=== PATIENT | male | born 1955 | race Caucasian/White ===

== ENCOUNTER 2019-06-22 11:32 | Emergency (ER) | payer MEDICARE, MEDICAID ==
[~2019-06-22] VITALS: Ht 182.9 cm; Wt 80.0 kg
[~2019-06-22 11:32] MED LIST: OMEP-84 PO; TRAZ-91 PO; TRAZ150T78 PO
[2019-06-22 12:28] LABS: BASOPHILS # (AUTO) 0.1 X10'3 (0-0.2); EOSINOPHILS # (AUTO) 0.2 X10'3 (0-0.9); EOSINOPHILS % (AUTO) 2.7 % (0-6); HEMATOCRIT 48.4 % (42.0-52.0); HEMOGLOBIN 16.9 g/dl (14.0-17.9); LYMPHOCYTES # (AUTO) 1.5 X10'3 (1.1-4.8); LYMPHOCYTES % (AUTO) 22.8 % (21-51); MEAN CORPUSCULAR HEMOGLOBIN 33.2 PG (27.0-31.0); MEAN CORPUSCULAR VOLUME 94.8 FL (78-98); MEAN PLATELET VOLUME 7.5 FL (7.4-10.4); MONOCYTES # (AUTO) 0.6 X10'3 (0-0.9); MONOCYTES % (AUTO) 9.2 % (2-12); NEUTROPHILS # (AUTO) 4.3 X10'3 (1.8-7.7); NEUTROPHILS % (AUTO) 64.3 % (42-75); PLATELET COUNT 264 X10'3 (140-440); WHITE BLOOD COUNT 6.7 X10'3 (4.5-11.0)
[2019-06-22 12:37] LABS: ALANINE AMINOTRANSFERASE 12 U/L (12-78); ALBUMIN/GLOBULIN RATIO 1.1 (1.1-1.5); ALKALINE PHOSPHATASE 98 IU/L (46-116); ANION GAP 10 (8-16); ASPARTATE AMINO TRANSFERASE 16 U/L (10-37); BILIRUBIN,TOTAL 0.5 MG/DL (0.1-1.0); BLOOD UREA NITROGEN 16 MG/DL (7-18); BUN/CREATININE RATIO 15.2 (5.4-32.0); CALCIUM 9.3 MG/DL (8.5-10.1); CHLORIDE 105 MMOL/L (99-107); CREATININE 1.05 MG/DL (0.60-1.10); GLUCOSE 93 MG/DL (70-104); SODIUM 141 MMOL/L (135-145); TOTAL CARBON DIOXIDE 25.9 MMOL/L (24-32); TOTAL PROTEIN 7.7 G/DL (6.4-8.2); eGFR 72 ML/MIN
[2019-06-22 15:17] LABS: CLARITY,URINE CLEAR (Clear); COLOR,URINE YELLOW (Yellow); GLUCOSE, URINE NEGATIVE (Neg); KETONES,URINE 40 mg/dl (Neg); LEUKOCYTE ESTERASE ,URINE NEGATIVE (Neg); NITRITES, URINE NEGATIVE (Neg); OCCULT BLOOD,URINE TRACE-INTACT (Neg); PH,URINE 5.5 (4.8-8.0); PROTEIN,URINE NEGATIVE (Neg); UROBILINOGEN,URINE 0.2 E.U/dL (0.2-1.0)
[2019-06-22 15:19] LABS: UA COLLECTION TYPE CLN CATCH MIDSTREAM
[2019-06-22 15:27] LABS: BACTERIA,URINE FEW /HPF (Neg); MUCUS STRANDS FEW /LPF (Neg); SQUAMOUS EPITHELIAL CELL,UR FEW /LPF (FEW)
[2019-06-22] MEDS ORDERED: iohexol 300mg/ml 100ml inj. ONE (18:26)
[2019-06-22] MEDS ORDERED: HYDROcodone/acetaminophen 5mg/325mg tablet PO ONE (18:35)
[2019-06-22] MEDS ORDERED: HYDR-4383 PO (20:08)
[2019-06-22] MEDS ORDERED: DOCU100C41 PO (20:08)
[2019-06-22 20:16] VITALS: BP 127/87
== END 2019-06-22 20:19 | disposition home or self-care (01) ==
LOC: ER 11:33
DX: N42.89 Other specified disorders of prostate (principal); M54.5 Low back pain; R14.0 Abdominal distension (gaseous); R10.30 Lower abdominal pain, unspecified; F17.200 Nicotine dependence, unspecified, uncomplicated; Z79.899 Other long term (current) drug therapy; Z98.890 Other specified postprocedural states; Z86.19 Personal history of other infectious and parasitic diseases
CPT/HCPCS: 36415; 74176; 74177; 80053; 81001; 85025; 85610; 87088; 99284; Q9967

== ENCOUNTER 2019-09-07 08:10 | Emergency (ER) | payer MEDICARE, MEDICAID ==
[~2019-09-07] VITALS: Ht 182.9 cm; Wt 72.0 kg
[~2019-09-07 08:10] MED LIST changes: +DOCU100C41 PO; +HYDR-4383 PO
[2019-09-07] MEDS ORDERED: HYDROcodone/acetaminophen 10/325mg tab PO ONE (08:55)
[2019-09-07] MEDS ORDERED: ondansetron 4mg rapidly disintigrating tab PO ONE (08:55)
[2019-09-07] MEDS ORDERED: HYDR-4383 PO (09:47)
[2019-09-07] MEDS ORDERED: ONDA4TAB6 PO (09:47)
[2019-09-07 09:56] VITALS: BP 146/94
== END 2019-09-07 09:58 | disposition home or self-care (01) ==
LOC: ER 08:11
DX: M54.5 Low back pain (principal); Z90.49 Acquired absence of other specified parts of digestive tract; Z98.890 Other specified postprocedural states; Z79.899 Other long term (current) drug therapy
CPT/HCPCS: 99283

== ENCOUNTER 2020-05-09 08:37 | Emergency (ER) | payer MEDICARE, MEDICAID ==
[~2020-05-09] VITALS: Ht 182.9 cm; Wt 70.5 kg
[~2020-05-09 08:37] MED LIST changes: +ONDA4TAB6 PO
[2020-05-09] MEDS ORDERED: normal saline 1000ML IV soln IVB ONE ×2 (09:20→10:40)
[2020-05-09] MEDS ORDERED: morphine 10mg/ml inj. IV ONE (09:20)
[2020-05-09] MEDS ORDERED: ondansetron/PF 4mg/2ml inj IV ONE (09:20)
[2020-05-09] MEDS ORDERED: LIDOcaine 2% 10ml TOPICAL JELLY (Urojet) MM ONE (09:20)
--- NOTE | 2020-05-09 09:58 | NUR ---
FARHANA Bowman notified of two failed allison attempts.
[2020-05-09 10:39] LABS: BASOPHILS # (AUTO) 0.1 X10'3 (0-0.2); BASOPHILS % (AUTO) 1.2 % (0-1); EOSINOPHILS # (AUTO) 0.1 X10'3 (0-0.9); EOSINOPHILS % (AUTO) 1.5 % (0-6); HEMOGLOBIN 15.2 g/dl (14.0-17.9); LYMPHOCYTES # (AUTO) 0.6 X10'3 (1.1-4.8); LYMPHOCYTES % (AUTO) 11.5 % (21-51); MEAN CORPUSCULAR HEMOGLOBIN 33.4 PG (27.0-31.0); MEAN CORPUSCULAR HGB CONC 34.5 g/dL (33.0-36.5); MEAN CORPUSCULAR VOLUME 96.8 FL (78-98); MONOCYTES # (AUTO) 0.6 X10'3 (0-0.9); NEUTROPHILS # (AUTO) 4.2 X10'3 (1.8-7.7); NEUTROPHILS % (AUTO) 74.8 % (42-75); PLATELET COUNT 229 X10'3 (140-440); RED BLOOD COUNT 4.55 X10'6 (4.70-6.10); RED CELL DISTRIBUTION WIDTH 15.1 % (11.5-14.5); WHITE BLOOD COUNT 5.6 X10'3 (4.5-11.0)
[2020-05-09 11:09] LABS: ALANINE AMINOTRANSFERASE 12 U/L (12-78); ALBUMIN 3.2 G/DL (3.4-5.0); ALBUMIN/GLOBULIN RATIO 0.8 (1.1-1.5); ALKALINE PHOSPHATASE 85 IU/L (46-116); ANION GAP 5 (8-16); ASPARTATE AMINO TRANSFERASE 11 U/L (10-37); BILIRUBIN,TOTAL 0.2 MG/DL (0.1-1.0); BLOOD UREA NITROGEN 21 MG/DL (7-18); CALCIUM 8.8 MG/DL (8.5-10.1); CHLORIDE 107 MMOL/L (99-107); GLUCOSE 97 MG/DL (70-104); LIPASE 107 U/L (73-393); POTASSIUM 3.9 MMOL/L (3.5-5.1); SODIUM 138 MMOL/L (135-145); TOTAL CARBON DIOXIDE 26.4 MMOL/L (24-32); TOTAL PROTEIN 7.1 G/DL (6.4-8.2); eGFR 76 ML/MIN
[2020-05-09 11:45] LABS: CLARITY,URINE CLOUDY (Clear); COLOR,URINE YELLOW (Yellow); GLUCOSE, URINE NEGATIVE (Neg); KETONES,URINE NEGATIVE (Neg); LEUKOCYTE ESTERASE ,URINE SMALL (Neg); NITRITES, URINE NEGATIVE (Neg); OCCULT BLOOD,URINE LARGE (Neg); PROTEIN,URINE TRACE mg/dl (Neg)
[2020-05-09 11:49] LABS: UA COLLECTION TYPE CLN CATCH MIDSTREAM
[2020-05-09 11:51] LABS: BACTERIA,URINE 4+ /HPF (Neg); MUCUS STRANDS FEW /LPF (Neg); RBC,URINE 50-100 /HPF (0-2); SQUAMOUS EPITHELIAL CELL,UR FEW /LPF (FEW); TRANSITIONAL EPI CELLS,URINE FEW /HPF
--- NOTE | 2020-05-09 12:22 | NUR ---
PARDEEPAR to Mildred CAVANAUGH
[2020-05-09] MEDS ORDERED: CIPR-230 PO (12:23)
[2020-05-09] MEDS ORDERED: HYDR-4353 PO (12:24)
[2020-05-09 13:10] VITALS: BP 140/89
== END 2020-05-09 13:13 | disposition home or self-care (01) ==
LOC: ER 08:37
DX: N39.0 Urinary tract infection, site not specified (principal); R39.11 Hesitancy of micturition; M54.9 Dorsalgia, unspecified; R33.9 Retention of urine, unspecified; Z86.19 Personal history of other infectious and parasitic diseases; Z72.89 Other problems related to lifestyle; Z87.891 Personal history of nicotine dependence; Z90.49 Acquired absence of other specified parts of digestive tract; Z98.890 Other specified postprocedural states; Z79.899 Other long term (current) drug therapy
CPT/HCPCS: 36415; 51702; 80053; 81001; 83690; 85025; 87088; 96361; 96374; 99284; J2270; J7030; 99283

== ENCOUNTER 2021-09-18 07:48 | Emergency (ER) | payer MEDICARE, MEDICAID ==
[~2021-09-18] VITALS: Ht 182.9 cm; Wt 79.0 kg
[2021-09-18] MEDS ORDERED: LIDO700A32 TOP (08:53)
[2021-09-18] MEDS ORDERED: ACET-2971 PO (08:53)
[2021-09-18] MEDS ORDERED: CYCL-1 PO (08:53)
[2021-09-18] MEDS ORDERED: HYDR-3965 PO (08:53)
[2021-09-18 09:24] VITALS: BP 124/77
== END 2021-09-18 09:31 | disposition home or self-care (01) ==
LOC: ER 07:49
DX: M54.50 Low back pain, unspecified (principal); Z86.19 Personal history of other infectious and parasitic diseases; Z87.81 Personal history of (healed) traumatic fracture; Z85.038 Personal history of other malignant neoplasm of large intestine; Z90.49 Acquired absence of other specified parts of digestive tract; Z72.89 Other problems related to lifestyle; Z79.899 Other long term (current) drug therapy; Z87.442 Personal history of urinary calculi
CPT/HCPCS: 99283